=== PATIENT | female | born 1960 | race Caucasian/White ===

== ENCOUNTER 2023-11-06 15:09 | Emergency (ER) | payer MEDICARE, OTHER | END 2023-11-06 16:57 | disposition home or self-care (01) | LOC: JD.ED 15:09 | DX: S63.502A Unspecified sprain of left wrist, initial encounter (principal); S43.402A Unspecified sprain of left shoulder joint, initial encounter; X50.1XXA Overexertion from prolonged static or awkward postures, initial encounter; Y93.K1 Activity, walking an animal | CPT/HCPCS: 73030-26-LT; 73030-LT; 73110-26-LT; 73110-LT; 99283 ==